=== PATIENT | female | born 1990 | race Caucasian/White ===

== ENCOUNTER 2016-05-30 23:29 | Emergency (ER) | payer SELFPAY ==
[~2016-05-30] VITALS: Ht 172.7 cm; Wt 61.2 kg
--- NOTE | 2016-05-30 23:31 | Emergency Room Report ---
History of Present Illness General Source: Patient, EMS Present Illness HPI Patient is a 25-year-old female brought in by ambulance after increased altered level consciousness. Per EMS patient brought in from a bar after recent heavy alcohol use. Patient was noted to be somewhat intoxicated.Per EMS [employer] was on scene. Patient was noted be found lying in a bathroom in a bar. The patient denied any current pain. Allergies: Coded Allergies: No Known Allergies (Unverified , 05/30/16) Patient History Past Medical History: see triage record Reviewed Nursing Documentation: PMH: Agreed, PSxH: Agreed Review of Systems All Other Systems: negative except mentioned in HPI Physical Exam General Appearance: well appearing, no apparent distress, alert Head: normocephalic, atraumatic ENT: hearing grossly normal, normal voice Neck: full range of motion, supple Respiratory: no respiratory distress, speaking full sentences Gastrointestinal: normal inspection Musculoskeletal: normal inspection, no calf tenderness Neurologic: normal inspection, alert, oriented x3, normal gait, other - slurred speech, oriented Psychiatric: other Skin: no rash Medical Decision Making Diagnostic Impression: Primary Impression: Acute alcoholic intoxication ER Course Patient presented for altered mental status. Differential diagnosis included but was not limited to alcohol intoxication, drug overdose, ischemic stroke, subarachnoid hemorrhage, hypoglycemia, spinal cord injury, neurodegenerative disorder, urinary tract infection, hypoxemia.Patient gradual improvement in her mental status. At the time of discharge patient was awake alert oriented and capable self care. The patient discharge with a responsible libertarian.Patient is advised to return if any worsening condition or if any changes in status that are concerning. Status: improved Disposition: HOME, SELF-CARE Condition: Stable EdBrian May 30, 2016 23:31
[2016-05-30] MEDS ORDERED: NKM (23:34)
[2016-05-30 23:50] VITALS: BP 145/66
[2016-05-31 01:10] VITALS: BP_SYST 134; BP_SYST 135; BP_DIAS 65
== END 2016-05-31 01:15 | disposition home or self-care (01) ==
LOC: EDBD 23:29 → EMR 23:40
DX: F10.129 Alcohol abuse with intoxication, unspecified (principal)
CPT/HCPCS: 99282